=== PATIENT | female | born 1990 | race Caucasian/White ===

== ENCOUNTER 2022-04-26 11:50 | Emergency (ER) | payer OTHER, SELFPAY ==
[2022-04-26 12:02] VITALS: BP 133/81; PULSE 107; RESP 20; TEMP 36.4; O2SAT 100
--- NOTE | 2022-04-26 13:14 | ED.FEMALEGU ---
HPI - Female Genitourinary General Chief complaint: Urogenital-Female Stated complaint: Urinary Problem Time Seen by Provider: 04/26/22 13:14 Source: patient, RN notes reviewed and old records reviewed Mode of arrival: ambulatory Limitations: no limitations History of Present Illness HPI Narrative: 31 year old female ho presents to express care with complaints of 2 week history of urinary burning, frequency, urgency, dribbling of urine. Patient reports that she had an old script of amoxicillin which she took with no improvement in her symptoms, states that she has also taken some AZO for her symptoms also with no help. Patient reports perineal discomfort and pressure with some lower abdominal pain over suprapubic area,denies any CVA tenderness.. Patient denies any vaginal discharge or itching. MD elicited complaint: UTI Onset (ago): week(s) (2) Location of symptoms: perineum and suprapubic Severity scale (1-10): 6 Quality of pain: dull, burning and aching Related Data Home Medications Medication Instructions Recorded Confirmed famotidine 20 mg tablet mg 04/26/22 fluoxetine 40 mg capsule mg 04/26/22 hydrochlorothiazide 12.5 mg tablet mg 04/26/22 verapamil 180 mg 24 hr mg PO 04/26/22 capsule,extended release Allergies Allergy/AdvReac Type Severity Reaction Status Date / Time cefaclor [From [facility]] Allergy Unknown Verified 04/26/22 12:03 Review of Systems Review of Systems: CONSTITUTIONAL: Denies fever, chills, or sweats. CARDIOVASCULAR: Denies chest pain, palpitations, or edema. RESPIRATORY: Denies cough or dyspnea. GASTROINTESTINAL: reports suprapubic abdominal pain,no nausea, vomiting, or diarrhea. GENITOURINARY: Reports dysuria, frequency, urgency, dribbling of urine Denies flank pain or hematuria. SKIN: Denies rash or itching. MUSCULOSKELETAL: Denies back pain or myalgia. Denies CVA tenderness NEUROLOGIC: Denies headache All systems reviewed & are unremarkable except as noted in HPI and below PMFSH Past Medical History Medical History (Updated 04/27/22 @ 11:33 by Fatimah Booker NP) Anxiety Hypertension Social History Social History (Updated 04/27/22 @ 11:34 by Fatimah Booker NP) Smoking status: Smoker, status unknown Alcohol intake: unknown Substance use: unknown Gender identity (if verbalized by the patient): Female Comments At time of signature, agree with nursing past medical, surgical, social and family history. There is no relevant family history pertinent to the presenting complaint Exam Narrative: GENERAL: Well-appearing, well-nourished, obese, and in no acute distress. HEAD: Normocephalic, atraumatic. NECK: Supple.no lymphadenopathy CHEST: Clear to auscultation. No respiratory distress.SAO2 100% on room air HEART: Regular rate and rhythm. No murmur heard. Normal peripheral pulses. ABDOMEN: Soft,tender over suprapubic area, nondistended, normal active bowel sounds. No CVA tenderness EXTREMITIES: Normal range of motion. No edema. SKIN: Warm, dry, no rash. NEURO: No focal deficits. Alert and oriented x3. Course Course Emergency Course: Patient is aware of diagnosis, understands and agrees to treatment plan.? Anticipatory guidance given.? Patient agrees to follow-up as directed and is aware of reasons to seek care at the emergency department. Portions of this record may have been created with voice recognition software Level of Care: Express Care Visit Vital Signs Vital signs: Vital Signs Temperature 36.4 C 04/26/22 12:02 Pulse Rate 107 H 04/26/22 12:02 Respiratory Rate 20 04/26/22 12:02 Blood Pressure 133/81 04/26/22 12:02 Pulse Oximetry 100 04/26/22 12:02 Oxygen Delivery Room Air 04/26/22 12:02 Temperature 36.4 C 04/26/22 12:02 Pulse Rate 107 H 04/26/22 12:02 Respiratory Rate 20 04/26/22 12:02 Blood Pressure 133/81 04/26/22 12:02 Pulse Oximetry 100 04/26/22 12:02 Oxygen Delivery Room Air 04/26/22 12:02 MDM - F
== END 2022-04-26 13:32 | disposition home or self-care (01) ==
PROVIDERS: Emergency Provider Registered Nurse; PCP Internal Medicine
DX: N39.0 Urinary tract infection, site not specified (principal); F41.9 Anxiety disorder, unspecified; I10 Essential (primary) hypertension
CPT/HCPCS: 81003; 87086; 87088; 99213; G0463

== ENCOUNTER 2022-12-05 15:40 | Emergency (ER) | payer OTHER, SELFPAY ==
[2022-12-05 15:48] VITALS: BP 150/103; PULSE 82; RESP 20; TEMP 36.5; O2SAT 100
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
== END 2022-12-05 16:16 | disposition short-term general hospital (02) ==
PROVIDERS: Emergency Provider Nurse Practitioner Family; PCP Internal Medicine
DX: M25.519 Pain in unspecified shoulder (principal); I10 Essential (primary) hypertension; Z79.899 Other long term (current) drug therapy
CPT/HCPCS: 99212; G0463

== ENCOUNTER 2022-12-30 15:27 | Outpatient (CLI) | payer OTHER, SELFPAY ==
--- NOTE | ~2022-12-30 | MM_ITS ---
EXAMINATION: MM screening minerva BI w nam HISTORY: Screening mammogram TECHNIQUE: Craniocaudal and mediolateral oblique 3-D tomosynthesis images were obtained and synthetic 2-D images were generated. CAD analysis was submitted and interpreted. COMPARISON: No prior mammogram is available for comparison at this institution. BREAST PARENCHYMAL COMPOSITION: There are scattered areas of fibroglandular density. FINDINGS: There is no evidence of suspicious mass, calcification, or architectural distortion to sugg est malignancy in either breast. There has been no suspicious interval change. IMPRESSION: 1. No mammographic evidence of malignancy. 2. Recommend routine screening mammography in one year. BI-RADS Category 1: Negative Reviewed, dictated and finalized at location A.
== END 2022-12-30 15:28 | disposition home or self-care (01) ==
PROVIDERS: PCP Internal Medicine; Visit Provider Nurse Practitioner Obstetrics & Gynecology
DX: Z12.31 Encounter for screening mammogram for malignant neoplasm of breast (principal)
CPT/HCPCS: 77063; 77067

== ENCOUNTER 2024-11-14 11:22 | Outpatient (CLI) | payer OTHER, SELFPAY ==
--- NOTE | ~2024-11-14 | MMUS_ITS ---
EXAMINATION: MM diagnostic minerva BI w nam, US breast LT limited INDICATION: 34-year old female; Evaluation of left breast palpable lump. 150 pounds weight loss since last examination. COMPARISON: 12/30/2022 TECHNIQUE: Digital breast tomosynthesis CC and MLO views of the BILATERAL breast and True lateral and spot compression of the LEFT breast were obtained with computer-aided detection to assist in interpretation of the study. FINDINGS: There are scattered areas of fibroglandular density. There are no suspicious masses, calcifications, architectural distortion or any other abnormality in either breast. Benign-appearing coarse calcification is seen in the general area of patient's palpable lump in the inner central anterior third left breast. LEFT BREAST ULTRASOUND FINDINGS: Targeted sonographic evaluation of the palpable lump area was completed. There is a superficial echogenic area at 11:00, 3 cm from the nipple that correlates to the area of palpable lump identified by the patient. This finding correlates to the benign calcifications seen on the mammography examination in these area. There is an incidental sebaceous cyst identified at 9:00 2 cm from the nipple. IMPRESSION: Benign coarse calcification most likely related to fat necrosis at 11:00 location correlates to the palpable lump area in the LEFT breast. Incidental sebaceous cyst at 9:00 position in the left breast. No mammographic evidence of malignancy in either breast. Recommendations: Clinical management of patient's palpable lump. Screening mammography at age 41. BI-RADS Category 2: Benign finding(s). Reviewed, dictated and finalized at location B. IMPRESSION: Benign coarse calcification most likely related to fat necrosis at 11:00 locati on correlates to the palpable lump area in the LEFT breast. Incidental sebaceous cyst at 9:00 position in the left breast. No mammographic evidence of malignancy in either breast. Recommendations: Clinical management of patient's palpable lump. Screening mammography at age 41. BI-RADS Category 2: Benign finding(s).
--- OUTSIDE RECORDS SUMMARY | 2024-11-14 13:45 | XMS_ITS | Clinical Summary ---
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 2 Active nystatin powderIndication s:cutaneous candidiasis Apply 1 Application topically 3 (three) times a day as needed (Skin irritation under stomach) 3 Active cyanocobalamin (Vitamin B-12) 500 mcg tabletIndication s:Prevention of Vitamin B12 Deficiency Take 1 tablet (500 mcg total) by mouth daily Start post Surgery 90 tablet 3 4 Active calcium citrate-vitamin D3 200 mg-6.25 mcg (250 unit) tabletIndication s:Hypocalcemia Prevention Take 2 tablets by mouth 3 (three) times a day Start post-surgery 540 tablet 3 4 Active ondansetron (ZOFRAN) 4 mg tabletIndication s:Prevention of Post-Operative Nausea and Vomiting Take 1 tablet (4 mg total) by mouth every 8 (eight) hours as needed for nausea or vomiting Start post-surgery 20 tablet 2 4 Active phenazopyridine (Pyridium) 200 mg tablet Take 1 tablet (200 mg total) by mouth 3 (three) times a day as needed for bladder spasms 12 tablet 5 Active ferrous sulfate 325 mg (65 mg of elemental iron) tabletIndication s:Iron Deficiency Anemia Take 1 tablet (325 mg total) by mouth daily with breakfast 90 tablet 3 5 06/01/19 26 Active Active Problems Problem Noted Date Diagnosed Date Chronic eczematous otitis externa of left ear Assessment & Plan (01/17/2024 9:59 AM INDIVIDUAL PENSION ADVISER): Lotrisone twice daily to outer portion of the ear canal for two weeks then as needed Avoid ear cleaning techniques Avoid water to ears Primary hypertension 05/17/2023 Body mass index 40+ - severely obese 03/01/2016 Overview (06/09/2016): Body mass index (BMI) of 45.0-49.9 in adult Morbid obesity 03/01/2016 Overview (06/09/2016): Morbid (severe) obesity due to excess calories Encounters Date Type Department Care Team Description 08/28/2024 Telephone [facility] Minimally Invasive Surgery [address] [facility] [address] [place] [address] Bárbara Cheatham CMA 08/27/2024 Telephone [facility]) [facility] Minimally Invasive Surgery [address] [place] [address] [address] Floor, [place] [address] Ronan Herr NP Medical Question/Miscellaneous from Last 3 Months Surgical History Surgery Date Site/Laterality Comments OTHER SURGICAL HISTORY Left ankle a plate with 2 screws. ANKLE SURGERY Medical History Medical History Date Comments Asthma Asthma Gastroesophageal reflux disease GERD Morbid obesity (HCC) Hypertension PCOS (polycystic ovarian syndrome) Anxiety Depression Peptic ulcer disease Migraines Motion sickness Family History Medical History Relation Name Comments Hypertension Father Depression Mother Hypertension Mother Obesity Mother Cancer Other 1 Family history of Cancer; Heart failure Other 2 Family history of Congestive heart failure; Diabetes Other 3 Family history of Diabetes mellitus; Heart disease Other 4 Family history of Heart disease; Hypertension Other 5 Family history of Hypertension; Osteoarthritis Other 6 Family histor y of Osteoarthritis; Stroke Other 7 Family history of Stroke; Depression Other 8 siblings Obesity Other 8 siblings Heart disease Other 9 grandparents Hypertension Other 9 grandparents Anesthesia problems Neg Hx Malig Hypertension Neg Hx Malig Hyperthermia Neg Hx Pseudochol deficiency Neg Hx Relation Name Status Comments Father Mother Other 1 Other 2 Other 3 Other 4 Other 5 Other 6 Other 7 Other 8 siblings Alive Other 9 grandparents Alive Social History Tobacco Use Types Packs/Day Years Used Date Smoking Tobacco: Never Smokeless Tobacco: Never Tobacco Cessation:Counseling Given: Not Answered Alcohol Use Standard Drinks/Week Comments Yes 0 (1 standard drink = 0.6 oz pur e alcohol) AUDIT-C Answer Date Recorded Q1: How often do you have a drink containing alcohol? Never 05/17/2023 Q2: How many drinks containi ng alcohol do you have on a typical day when you are drinking? Patient does not drink Q3: How often do you have si x or more drinks on one occasion? Never 05/17/2023 Personal Safety Answer Date Recorded Have you ever been in or are you currently in a harmful physical or emotional relationship or is someone making you feel afraid or unsafe? Denies 05/17/2023 Comments No Sex and Gender Information Value Date Recorded Sex Assigned at Not on file Legal Sex Female 2:56 AM INDIVIDUAL PENSION ADVISER Gender Identity Female 11/29/2021 9:30 AM CDT Sexual Orientation Straight 11/29/2021 9: 30 AM CDT Obstetrics History Last Filed Vital Signs Vital Sign Reading Time Taken Comments Blood Pressure 140/90 05/29/2024 7:47 PM CDT Pulse 82 05/29/2024 7:47 PM CDT Temperature 36.9 C (98.4 F) 05/29/2024 7:47 PM CDT Respiratory Rate 18 05/29/2024 7:47 PM CDT Oxygen Saturation 95% 05/29/2024 7:47 PM CDT Inhaled Oxygen Concentration - - Weight 72.6 kg (160 lb) 05/29/2024 7:47 PM CDT Height 160 cm (5' 3) 05/29/2024 7:47 PM CDT Body Mass Index 28.34 05/29/2024 7:47 PM CDT Plan of Treatment Health Maintenance Due Date Last Done Comments Cervical Cancer Screening 1991 Depression Screening 1991 Hepatitis C Screening 1991 Varicella Vaccines (1 of 2 - 13+ 2-dose series) 06/27/2004 HPV Vaccines (2 - 3-dose series) 09/11/2007 08/14/19 08 Regular Well Visit/Exam 18-64 06/27/2009 Pneumococcal vaccine <65 (1 of 2 - PCV) 06/27/2010 Covid-19 Vaccine (3 - 2024-2 6 season) 2024 07/28/2021, 06/25/2021 Influenza Vaccine (#1) 2024 9, 01/28/2018, 03/06/2014, Additional history exists DTaP/Tdap/Td Vaccine (10 - T d or Tdap) 07/17/2031 07/16/2021, 08/15/2014, 03/06/2014, Additional history exists Hepatitis B Screening Completed 06/09/1997 , 12/02/1996, 10/26/1996 Medical Devices Implanted Type Area Director Intelligence Analysis Programs Device Identifier Shelf Expiration Date Model / Serial / Lot [employer] Biological Bariatric Peristrip Non Crosslinked Bovine Pericardium For Endo Victoria Thin [id number] - [id number] Implanted:Qty: 1 on 05/17/2023 by Rick Lopez MD at [facility] Other - see comments N/A: Abdomen [employer] 02/22/2025 [id number] THN / N/A / [id number] Description:Nevin strip [employer] Biological Bariatric Peristrip Non Crosslinked Bovine Pericardium For Endo Victoria Thin [id number] - [id number] Implanted:Qty: 1 on 05/17/2023 by Rick Lopez MD at [facility] Other - see comments N/A: Abdomen [employer] 02/22/2025 [id number] THN / N/A / [id number] Description:Nevin strip Insurance [facility] Advance Directives For more information, please contact: [phone] * Full Code (Latest Code Status on File) Date Activated Date Inactivated Comments 05/17/2023 2:24 PM 05/18/2023 6:56 PM Care Teams Sanitarian Inspector Relationship Specialty Start Date End Date Keith Ochoa MD [address] [place] [address] [place], [place] [id number] PCP - General 09/10/12
--- OUTSIDE RECORDS SUMMARY | 2024-11-14 13:45 | XMS_ITS | Clinical Summary ---
Author Organization [facility] Address [address] [place] [address] Phone Care Team Providers Care Greenhouse Assistant Name Role Phone Keith Ochoa MD Primary Care Provider [phone] Allergies Active Allergy Reactions Criticality Noted Date Comments Cefaclor Swelling 03/25/2018 Medications verapamil (COVERA HS) 180 MG CAPSULE SR 24 HRIndications:H ypertension Take 360 mg by mouth daily. Indications: High Blood Pressure Disorder Active cyclobenzaprine (FLEXERIL) 5 MG Tablet Take 1 Tab by mouth 3 times daily as needed for Muscle spasms. 14 Tab 9 Active Additional Information Patient not taking.Reported on 05/18/2020 naproxen (NAPROSYN) 500 MG Tablet Take 1 Tab by mouth 2 times daily as needed for Mild or more severe pain. 20 Tab 9 Active Additional Information Patient not taking.Reported on 05/18/2020 methylPREDNISol one (MEDROL DOSPACK) 4 MG Tablet Therapy Pack See product package insert for dosing schedule 21 Tab 9 Active Additional Information Patient not taking.Reported on 05/18/2020 methylPREDNISol one (MEDROL DOSPACK) 4 MG Tablet Therapy Pack See product package insert for dosing schedule 21 Tab 9 Active Additional Information Patient not taking.Reported on 05/18/2020 FLUoxetine (PROzac) 20 MG CapsuleIndicati ons:Generalized Anxiety Disorder,Major Depressive Disorder Take 40 mg by mouth daily. Indications: Generalized Anxiety Disorder, Major Depressive Disorder Active famotidine (Pepcid) 40 MG Tablet Take 40 mg by mouth 2 times daily. Active ketorolac (TORADOL) 10 MG Tablet Take 1 Tablet by mouth every 6 hours as needed for Moderate or more severe pain. 20 Tablet Active Active Problems Problem Noted Date Diagnosed Date Depression 06/02/2020 Anxiety 06/02/2020 Family History Medical History Relation Name Comments Anxiety disorder Mother Susan Depression Mother Susan Hypertension Mother Susan Anxiety disorder Sister Katelyn (twin) Depression Sister Katelyn (twin) Relation Name Status Comments Mother Susan Alive Sister Katelyn (twin) Alive Social History Tobacco Use Types Packs/Day Years Used Date Smoking Tobacco: Never Smokeless Tobacco: Never Alcohol Use Standard Drinks/Week Comments Not Currently 0 (1 standard drink = 0.6 oz pur e alcohol) rarely PHQ-2 Answer Date Recorded Total Score - Questions 1-9 14 05/04 Sexually Active Control Partners Comments Yes Male Comments No Sex and Gender Information Value Date Recorded Sex Assigned at Female 12/05/2022 5:29 PM CDT Legal Sex Female 11:26 PM CDT Gender Identity Female 12/05/2022 5:29 PM CDT Sexual Orientation Not on file Last Filed Vital Signs Vital Sign Reading Time Taken Comments Blood Pressure 154/72 09/08/2023 7:08 PM CDT Pulse 72 09/08/2023 7:08 PM CDT Temperature 37 C (98.6 F) 09/08/2023 4:20 PM CDT Respiratory Rate 16 09/08/2023 7:08 PM CDT Oxygen Saturation 99% 09/08/2023 7:08 PM CDT Inhaled Oxygen Concentration - - Weight 103.9 kg (229 lb) 09/08/2023 4:17 PM CDT Height 160 cm (5' 3) 09/08/2023 4:17 PM CDT Body Mass Index 40.57 09/08/2023 4:17 PM CDT Plan of Treatment Health Maintenance Due Date Last Done Comments Hepatitis C Virus (HCV) Screening 1991 Human Papillomavirus (HPV) Immunization (2 - 3-dose series) 09/11/2007 08/14/2007 Pap Smear 06/27/2012 Cervical Cancer Screening (CCS) 06/27/2021 HPV/Cotest 06/27/2021 Influenza Immunization (#1) 2024 10/0 07/2018, 01/28/2018, 03/06/2014, Additional history exists SARS-COV-2 Immunization ( season) 2024 07/28/2021, 06/25/2021 Respiratory Syncytial Virus (RSV) Immunization (Adult) (1 - 1-dose 75+ series) 06/27/2066 Hepatitis B Immunization Completed 998, 12/02/1996, 10/26/1996 DTaP/Tdap/Td Immunization Discontinued 2021, 03/06/2014, 10/05/2005, Additional history exists TdaP Immunization Completed 07/16/2021, , 10/05/2005 Meningococcal Immunization (ACWY) Aged Out No longer eligible based on patient's age to complete this topic Pneumococcal Immunization Combined Aged Out No longer eligible based on patient's age to complete this topic Rotavirus Immunization Aged Out No lo nger eligible based on patient's age to complete this topic Goals Goal Patient Goal Type Associated Problems Recent Progress Patient-Stated? Author ANXIETY Anxiety On track(2020 2:05 PM CDT) No Danielle Fong LCSW Note: to have reduction of anxiety and depression symptoms. Goal Reviewed with: patient today Readiness to change: Thinking about making a change Department associated with goal: [facility] Steps to achieve goal: to attend, at least twice monthly, counseling sessions. to identify, verbalize and process at least three contributing factors/triggers to anxiety and depression. to identify and verbalize at least three actions/skills to prevent and/or cope with anxiety and depression. to put into action, at least one time weekly, for one month, an action/skill to prevent and or cope with anxiety and depression. Depression Depression On track(2020 2:05 PM CDT) Yes Danielle Fong LCSW Note: Would like to have motivation Goal Reviewed with: patient today Readiness to change: Thinking about making a change Department associated with goal: [facility] Steps to achieve goal: to attend, at least twice monthly, counseling sessions. to identify, verbalize and process at least three contributing factors/triggers to anxiety and depression. to identify and verbalize at least three actions/skills to prevent and/or cope with anxiety and depression. to put into action, at least one time weekly, for one month, an action/skill to prevent and or cope with anxiety and depression. Insurance [place] Care Teams Greenhouse Assistant Relationship Specialty Start Date End Date Keith Ochoa MD [address] [place] [address] PCP - General Internal Medicine 03/25/18
== END 2024-11-14 11:23 | disposition home or self-care (01) ==
PROVIDERS: PCP Internal Medicine; Visit Provider Nurse Practitioner
DX: R92.1 Mammographic calcification found on diagnostic imaging of breast (principal); N60.82 Other benign mammary dysplasias of left breast; N64.4 Mastodynia
CPT/HCPCS: 76642; 77062; 77066; G0279